=== PATIENT | male | born 1975 | race Asian ===

== ENCOUNTER 2016-10-12 10:20 | Emergency (ER) | payer OTHER ==
[~2016-10-12] VITALS: Ht 172.7 cm; Wt 72.5 kg
[2016-10-12] MEDS ORDERED: BACITRACIN 0.9 GM PACKET OINTMENT TP ONE (12:30)
[2016-10-12 12:57] VITALS: BP 123/79
[2016-10-15 14:43] LABS: HEPATITIS C AB CONFIRM REFLEX? YES; HEPATITIS C AB CONFIRMATION Non Reactive (Non Reactive); HEPATITIS C AB SCREEN 5.9 s/co ratio (0.0-0.9)
== END 2016-10-12 13:08 | disposition home or self-care (01) ==
LOC: EEVIPCON 10:23 → EMS 10:23
DX: S51.852A Open bite of left forearm, initial encounter (principal); W50.3XXA Accidental bite by another person, initial encounter; Y93.89 Activity, other specified; Y92.89 Other specified places as the place of occurrence of the external cause; Y99.8 Other external cause status
CPT/HCPCS: 86706; 86803; 86804; 99284

== ENCOUNTER 2016-12-29 12:21 | Emergency (ER) | payer OTHER ==
[~2016-12-29] VITALS: Ht 175.3 cm; Wt 81.8 kg
[2016-12-29] MEDS: IBUPROFEN 800 MG TABLET PO ONE (13:23)
[2016-12-29 13:45] VITALS: BP 132/85
[2016-12-30 13:47] LABS: HEPATITIS Bs ANTIGEN SCREEN P Negative (Negative)
== END 2016-12-29 13:59 | disposition home or self-care (01) ==
LOC: EMS 12:23
DX: S86.812A Strain of other muscle(s) and tendon(s) at lower leg level, left leg, initial encounter (principal); X58.XXXA Exposure to other specified factors, initial encounter; Y93.89 Activity, other specified; Y92.89 Other specified places as the place of occurrence of the external cause; Y99.8 Other external cause status
CPT/HCPCS: 80074; 99284

== ENCOUNTER 2017-04-28 14:51 | Emergency (ER) | payer OTHER ==
[~2017-04-28] VITALS: Ht 175.3 cm; Wt 185.0 kg
[2017-04-28] MEDS ORDERED: IBUPROFEN 800 MG TABLET PO ONE (15:30)
[2017-04-28 16:05] VITALS: BP 132/68
[2017-04-28] MEDS ORDERED: PERTUSS(ACELL),DIPH,TET VAC/PF 0.5 ML VIAL IM ONE ×2 (16:45→17:00)
== END 2017-04-28 17:12 | disposition home or self-care (01) ==
LOC: EMS 14:52
DX: S80.02XA Contusion of left knee, initial encounter (principal); S50.12XA Contusion of left forearm, initial encounter; S50.02XA Contusion of left elbow, initial encounter; W22.8XXA Striking against or struck by other objects, initial encounter; Y93.89 Activity, other specified; Y92.89 Other specified places as the place of occurrence of the external cause; Y99.8 Other external cause status
CPT/HCPCS: 90471; 90715; 99284